=== PATIENT | female | born 1970 | race Caucasian/White ===

== ENCOUNTER 2017-07-05 12:21 | Outpatient (CLI) | payer OTHER ==
--- NOTE | 2017-07-05 14:09 | RAD ---
LEFT HAND THREE VIEWS: History: Foreign body. FINDINGS: There are no signs of fracture. There is a round metallic foreign body seen in the soft tissues on th e volar side of the hand on the AP projection that overlies the base of the second metacarpal. IMPRESSION: Foreign body. POS: [facility]
== END 2017-07-05 12:22 | disposition home or self-care (01) ==
LOC: SCSRAD 12:21
PROVIDERS: ATTEND Surgery
DX: S60.559A Superficial foreign body of unspecified hand, initial encounter (principal)

== ENCOUNTER 2017-10-03 08:57 | Outpatient (CLI) | payer OTHER ==
--- NOTE | 2017-10-03 10:19 | MMO ---
BILATERAL SCREENING MAMMOGRAM: History: 47-year-old female for screening mammography. Comparison: 09-29-17, 16, 06-03-14 FINDINGS: Bilateral MLO and CC views of the breasts shows scattered fibroglandular breast tissue. There is no e vidence of suspicious mass, suspicious cluster of microcalcifications, or area of architectural disto rtion. This study is interpreted with the assistance of computer aided detection. IMPRESSION: BIRADS category 1 - negative. Annual screening mammography is recommended. POS: [facility]
== END 2017-10-03 08:58 | disposition home or self-care (01) ==
LOC: SCSMAMMO 08:57
PROVIDERS: ATTEND Student in an Organized Health Care Education/Training Program
DX: Z12.31 Encounter for screening mammogram for malignant neoplasm of breast (principal)
CPT/HCPCS: 77067

== ENCOUNTER 2017-11-10 10:45 | Emergency (ER) | payer OTHER ==
[2017-11-10] MEDS ORDERED: Acetaminophen 500 MG TAB ONE (11:18)
[2017-11-10 11:26] LABS: #Basophils 0.1 thou/uL (0.0-0.2); #Eosinphils 0.1 thou/uL (0.0-0.7); #Lymphocytes 1.6 thou/uL (1.20-3.40); #Monocytes 0.3 thou/uL (0.11-0.59); #Neutrophils 3.2 thou/uL (1.40-6.50); %Basophils 1.4 % (0.0-1.0); %Eosinophils 1.3 % (0.0-10.0); %Monocytes 4.9 % (0.0-10.0); %Neutrophils 61.3 % (42.0-75.0); BHCG - Serum Negative (NEGATIVE); Hemoglobin 13.6 g/dL (12.0-16.0); Mean Corpuscular HGB CONC 34.8 g/dL (32.0-36.0); Mean Corpuscular Hemoglobin 30.8 pg (27.0-31.0); Mean Corpuscular Volume 88.6 fl (81.0-99.0); Platelet Count 195 thou/uL (130-400); Pregs Control Background? CLEAR/WHITE (CLR/WHITE); Pregs Control Bar Appear? YES (CONTROL BAR); White Blood Cell (WBC) Count 5.1 thou/uL (4.8-10.8)
[2017-11-10 11:30] LABS: Anion Gap 14 mmol/L (10-20); BUN (Urea Nitrogen) 11 mg/dL (7.0-18.7); Calc. Creatinine Clearance 0 mL/min (70-130); Calcium 9.3 mg/dL (7.8-10.44); Carbon Dioxide 23 mmol/L (22-29); Chloride 106 mmol/L (98-107); Estimated GFR-MDRD 64; Glucose 166 mg/dL (70-105); Potassium 3.6 mmol/L (3.5-5.1); Sodium 139 mmol/L (136-145)
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
[2017-11-10] MEDS ORDERED: Adacel (T-DAP) 0.5 ML VIAL ONE (12:13)
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
[2017-11-10] MEDS ORDERED: Fluorescein Opthalmic Strip ONE (12:53)
[2017-11-10] MEDS ORDERED: Ketorolac Tromethamine 30 MG/ML VIAL ONE (13:02)
[2017-11-10] MEDS ORDERED: Bacitracin Zinc 1 Packet ONE (13:03)
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
== END 2017-11-10 13:23 | disposition home or self-care (01) ==
LOC: SCSER 10:45
DX: S40.212A Abrasion of left shoulder, initial encounter (principal); S50.812A Abrasion of left forearm, initial encounter; S80.212A Abrasion, left knee, initial encounter; E78.5 Hyperlipidemia, unspecified; Z79.899 Other long term (current) drug therapy; V43.52XA Car driver injured in collision with other type car in traffic accident, initial encounter
CPT/HCPCS: 70450; 70498; 71045; 72125; 72170; 80048; 84703; 85025; 86850; 86900; 86901; 90471; 90715; 96361; 96374; J1885; J2270

== ENCOUNTER 2017-11-19 20:54 | Emergency (ER) | payer OTHER ==
[2017-11-19 21:49] LABS: CKMB 0.7 ng/mL (0-6.6); Troponin I Less than 0.010 ng/mL (< 0.028)
== END 2017-11-19 22:03 | disposition home or self-care (01) ==
LOC: SCSER 20:54
DX: R07.89 Other chest pain (principal); E78.5 Hyperlipidemia, unspecified; Z79.899 Other long term (current) drug therapy
CPT/HCPCS: 82553; 84484; 93005

== ENCOUNTER 2018-08-01 14:04 | Outpatient (CLI) | payer OTHER ==
--- NOTE | 2018-08-01 15:40 | ULT ---
THYROID ULTRASOUND: Date: 08/01/18 HISTORY: Nodule seen on CT neck. COMPARISON: 11/10/17 CT of neck examination. FINDINGS: Real-time imaging of the right and left lobes of the thyroid were performed. The right lobe measures 1.4 x 1.5 x 3.9 cm. The left lobe measures 0.9 x 1.5 x 3.9 cm. In more of the upper pole region of the right lobe of the thyroid is an approximately 6.0 mm cyst. Th ere are also some smaller cysts identified within the right lobe. In the more mid to lower pole regio n along the posterior border of the thyroid is an approximately 7.0 x 8.0 mm solid appearing nodule. It could represent a projection of the posterior aspect of the gland, although a parathyroid adenoma is a possibility. On the left side, there is a similar 1.0 cm solid nodule. This is more isoechoic to this thyroid glan d, where the right lobe nodule is more hyperechoic. Also, a tiny cyst is identified. IMPRESSION: 1. Solid appearing nodules which project along the posterior and more inferior borders of both the r ight and left lobes of the thyroid gland. These may represent parathyroid masses given their location . 2. Small bilateral thyroid cysts. POS: [facility]
== END 2018-08-01 14:05 | disposition home or self-care (01) ==
LOC: SCSULT 14:04
PROVIDERS: ATTEND Family Medicine
DX: E04.2 Nontoxic multinodular goiter (principal)
CPT/HCPCS: 76536

== ENCOUNTER 2020-02-11 10:38 | Outpatient (CLI) | payer OTHER ==
--- NOTE | 2020-02-11 11:24 | ULT ---
US Gallbladder RUQ: 02/11/2020 12:00 AM CLINICAL HISTORY: Right upper quadrant abdominal pain. STUDY: Limited right upper quadrant ultrasound of abdomen. COMPARISON: None. FINDINGS: Liver: Size: Normal. Echogenicity: Normal. Contour: Smooth. Mass: None. Bile ducts: No intrahepatic or extrahepatic biliary dilatation. Common bile duct measures 5 mm. Gallbladder: Normal. Pancreas: Head, body, and tail appear normal. Right kidney: No pelvicalyceal dilatation. Right kidney measuring 8.8 cm in length. IMPRESSION: Unremarkable exam.
== END 2020-02-11 10:39 | disposition home or self-care (01) ==
LOC: SCSULT 10:38
PROVIDERS: ATTEND Family Medicine
DX: R10.11 Right upper quadrant pain (principal)
CPT/HCPCS: 76705

== ENCOUNTER 2022-09-14 08:50 | Outpatient (CLI) | payer OTHER | END 2022-09-14 08:51 | disposition home or self-care (01) | LOC: BICMAMMO 08:50 | PROVIDERS: ATTEND Family Medicine | DX: Z12.31 Encounter for screening mammogram for malignant neoplasm of breast (principal) | CPT/HCPCS: 77063; 77067 ==